=== PATIENT | male | born 1960 | race Caucasian/White ===

== ENCOUNTER 2024-09-04 11:41 | Emergency (ER) | payer BC, SELFPAY ==
--- NOTE | ~2024-09-04 | CT_ITS ---
EXAMINATION: CT abdomen pelvis w con DATE: 09/04/2024 18:29 INDICATION: upper abdominal pain, bloating TECHNIQUE: Computed tomography (CT) of the abdomen and pelvis was performed with 100 mL Omnipaque-350 intravenous contrast. Automated exposure control and iterative reconstruction technique were employe d. The dose-length product was 947.09 mGy-cm. COMPARISON: None. FINDINGS: Lower thorax: 11 mm peripheral right lower lobe pulmonary nodule (coronal image 79/139). Calcified ri ght lower lobe granuloma. Aortic valve calcification. Liver: Normal. Biliary/Gallbladder: Cholelithiasis. No inflammatory change or pericholecystic fluid. No bile duct di lation. Pancreas: No mass or duct dilation. Spleen: Normal. Adrenals:No mass. Kidneys: 3.7 cm exophytic left upper pole lesion, 28 Hounsfield units, minimal focal wall calcificati on. Multiple additional simple left renal cysts. Multiple bilateral subcentimeter hypodensities that are too small to characterize but statistically most likely represent cysts. No hydronephrosis. GI tract: Mild distal esophageal and gastric wall edema. No small or large bowel dilation. Normal fermin endix. Mesentery/Peritoneum: No ascites, mass, or free air. Retroperitoneum: No mass. Atherosclerotic calcifications of intra-abdominal arterial vessels. Pelvis: Normal urinary bladder. Prostatomegaly. Soft Tissues: Small, fat-containing umbilical and bilateral inguinal hernias. Bones: No acute osseous finding. IMPRESSION: 11 mm right lower lobe pulmonary nodule. Recommend low-dose noncontrast CT of the chest follow-up in 3 months, PET/CT, or biopsy. Mild esophagitis/gastritis. Cholelithiasis, without CT evidence of cholecystitis or choledocholithiasis. Indeterminate 3.7 cm left upper pole lesion. Recommend nonemergent but timely CT or MRI without and w ith contrast for further characterization. Reviewed, dictated and finalized at location K. IMPRESSION: 11 mm right lower lobe pulmonary nodule. Recommend low-dose noncontrast CT of t he chest follow-up in 3 months, PET/CT, or biopsy. Mild esophagitis/gastritis. Cholelithiasis, without CT evidence of cholecystitis or choledocholithiasis. Indeterminate 3.7 cm left upper pole lesion. Recommend nonemergent but timely C T or MRI without and with contrast for further characterization.
--- NOTE | ~2024-09-04 | XR_ITS ---
Clinical Indication: Left lung pain PA and lateral views of the chest: Comparison: None Findings: There is linear scarring left lung base. Suture line noted right apical region. The lungs a re otherwise clear, without evidence of focal consolidation or pleural effusion. Cardiomediastinal s ilhouette is within normal limits. Bones and soft tissues are unremarkable. Impression: No acute abnormality. Linear scarring left lung base. Suture line right lung apex. Reviewed, dictated and finalized at location . Impression: No acute abnormality. Linear scarring left lung base. Suture line right lung ap ex.
[2024-09-04 12:15] VITALS: BP 131/76; PULSE 86; RESP 19; TEMP 36.7; O2SAT 96
[2024-09-04 14:24] VITALS: BP 133/87; PULSE 73; RESP 16; O2SAT 98
--- NOTE | 2024-09-04 14:31 | ECG_ITS ---
Test Date: 2024-09-04 14:48:25 Measurements Intervals [place] Rate: 64 P: 79 WY: 181 QRS: 52 QRSD: 105 T: 53 QT: 400 QTc: 414 Interpretive Statements SINUS RHYTHM Electronically Signed On 09-05-2024 13:58:52 CDT by Kaden Lilly D.O
--- NOTE | 2024-09-04 14:32 | ED_ITS ---
HPI - General Adult General Chief complaint: Unspecified Stated complaint: left flank pain Time Seen by Provider: 09/04/24 14:25 Source: patient Mode of arrival: ambulatory Limitations: no limitations History of Present Illness HPI narrative: This is a 63 year old male that presents to the ER for left upper quadrant abdominal pain. Ongoing over the last couple of days. Reports he has had a lot a gas and bloating. Denies any other associated symptoms. Denies fevers, shortness of breath, vomiting, diarrhea. Related Data Allergies Allergy/AdvReac Type Severity Reaction Status Date / Time No Known Allergies Allergy Verified 09/04/24 12:19 Review of Systems 2 Review of Systems: CONSTITUTIONAL: Denies fever CARDIOVASCULAR: Reports chest pain RESPIRATORY: Denies dyspnea. GASTROINTESTINAL: Reports abdominal pain. Denies nausea, vomiting, or diarrhea. All systems reviewed & are unremarkable except as noted in HPI and below PMFSH Past Medical History Medical History (Updated 09/04/24 @ 19:07 by Betty Erwin PA-C) History of pneumothorax Social History Social History (Updated 09/04/24 @ 14:34 by Betty Erwin PA-C) Substance use: never Exam 2 Narrative: GENERAL: Well-appearing, well-nourished, and in no acute distress. HEAD: Normocephalic, atraumatic. EYES: EOMI. ENT: Nares clear, no rhinorrhea or epistaxis. Mucous membranes moist. Oropharynx without tonsillar hypertrophy exudate or other lesions. CHEST: Clear to auscultation. No respiratory distress. No wheezes rales or rhonchi HEART: Regular rate and rhythm. No murmur heard. Normal peripheral pulses. ABDOMEN: Soft, nondistended, normal active bowel sounds. Mild tenderness to palpation throughout the upper abdomen, without guarding EXTREMITIES: Normal range of motion. No edema. SKIN: Warm, dry, no rash. NEURO: No focal deficits. Alert and oriented x3. PSYCH: Normal mood and affect Course Course Emergency Course: Patient updated on his workup and agrees with plan of care Vital Signs Vital signs: Vital Signs Temperature 98.0 F 09/04/24 12:15 Pulse Rate 86 09/04/24 12:15 Respiratory Rate 19 09/04/24 12:15 Blood Pressure 131/76 09/04/24 12:15 Pulse Oximetry 96 09/04/24 12:15 Oxygen Delivery Autopap 09/04/24 12:15 Temperature 98.0 F 09/04/24 12:15 Pulse Rate 73 09/04/24 19:00 Respiratory Rate 15 09/04/24 19:00 Blood Pressure 139/82 09/04/24 19:00 Pulse Oximetry 95 09/04/24 19:00 Oxygen Delivery Room Air 09/04/24 16:32 Medical Decision Making MDM Narrative Medical decision making narrative: Patient presents to the emergency department for epigastric abdominal pain. He is afebrile and nontoxic. His vitals are stable. Cbc without leukocytosis metabolic panel and lipase without concerning findings. Chest x-ray is without acute findings. EKG without acute changesand his baseline troponin is negative. CT abdomen and pelvis obtained. Shows a pulmonary nodule which patient is aware of. Shows esophagitis/gastritis. Cholelithiasis without evidence of cholecystitis. A renal lesion. Patient updated on his workup and agrees with plan of care. Will be started on pantoprazole. Instructed to follow up with primary provider. He was given warnings to return to the ER Vital Signs Vital Signs: Vital Signs Temperature 98.0 F 09/04/24 12:15 Pulse Rate 86 09/04/24 12:15 Respiratory Rate 19 09/04/24 12:15 Blood Pressure 131/76 09/04/24 12:15 Pulse Oximetry 96 09/04/24 12:15 Oxygen Delivery Autopap 09/04/24 12:15 Temperature 98.0 F 09/04/24 12:15 Pulse Rate 73 09/04/24 19:00 Respiratory Rate 15 09/04/24 19:00 Blood Pressure 139/82 09/04/24 19:00 Pulse Oximetry 95 09/04/24 19:00 Oxygen Delivery Room Air 09/04/24 16:32 Lab Data Lab results reviewed: Yes I reviewed the patient's lab results. 09/04/24 15:00 09/04/24 15:00 Labs: Lab Results 09/04/24 Range/Units 15:00 WBC 7.8 (4.5-10.0) K/mm3 RBC 4.74 (4.6-6.20) M/mm3 Hgb 15.0 (14.0-18.0) g/dL Hct 45.5 (42.0-52.0) % MCV 96.0 (80-100) fl MCH 31.6 (26-34) pg MCHC 33.0 (32-36) g/dl RDW 13.2 (11.5-14.5) % Plt Count 184 (150-375) k/mm3 MPV 9.3 (7.4-10.4) fl Immature Gran % (Auto) 0.4 (0-0.5) % Neut % (Auto) 67.0 (45.5-73.1) % Lymph % (Auto) 21.6 (18.3-44.2) % Victoria % (Auto) 6.4 (2.6-8.5) % Eos % (Auto) 4.0 (0-4.4) % Baso % (Auto) 0.6 (0.2-1.2) % Lymph # (Auto) 1.68 (0.9-3.2) K/mm3 Victoria # (Auto) 0.5 (0.1-0.6) K/mm3 Eos # (Auto) 0.3 (0-0.3) K/mm3 Baso # (Auto) 0.1 (0.0-0.1) K/mm3 Abs Immat Gran (auto) 0.03 (0.00-0.031) K/mm3 Absolute Neuts (auto) 5.2 (1.3-6.7) K/mm3 Absolute Nucleated RBC 0.000 (0.0-0.012) K/mm3 Nucleated RBC % 0.0 (0.0-0.2) % PT 13.9 (11.1-14.7) Seconds INR 1.0 APTT 28.2 (22.3-36.8) Seconds D-Dimer 0.47 (<0.48) ug/mL Sodium 138 (137-145) mmol/L Potassium 3.5 (3.4-5.0) mmol/L Chloride 100 (98-107) mmol/L Carbon Dioxide 28 (22-30) mmol/L Anion Gap 10 (4-12) mmol/L BUN 14 (9-20) mg/dL Creatinine 1.21 (0.7-1.3) mg/dL Estim Creat Clear Calc 67 ml/min Estimated GFR 60 (59 - ) Glucose 96 (65-110) mg/dL Calcium 9.3 (8.4-10.2) mg/dL Total Bilirubin 0.7 (0.2-1.3) mg/dL AST 28 (17-59) U/L ALT 35 (6-50) U/L Alkaline Phosphatase 118 (38-126) U/L Troponin I < 0.012 (0.000-0.034) ng/mL Total Protein 8.0 (6.3-8.2) g/dL Albumin 4.7 (3.5-5.1) g/dL Lipase 139 (23-300) U/L Imaging Data Radiologist's impression: ITS Impressions Chest X-Ray 09/04/24 12:58 Impression: No acute abnormality. Linear scarring left lung base. Suture line right lung apex. Abdomen/Pelvis CT 09/04/24 18:32 IMPRESSION: 11 mm right lower lobe pulmonary nodule. Recommend low-dose noncontrast CT of the chest follow-up in 3 months, PET/CT, or biopsy. Mild esophagitis/gastritis. Cholelithiasis, without CT evidence of cholecystitis or choledocholithiasis. Indeterminate 3.7 cm left upper pole lesion. Recommend nonemergent but timely CT or MRI without and with contrast for further characterization. ECG Data EKG #1: ECG completion date: 09/04/24 EKG Interpretation: normal rate, sinus rhythm, no ST changes and normal QT Critical Care Time Critical Care Time Critical Care Time: No Discharge Plan Discharge Clinical Impression: Renal cyst Gastritis Qualifiers: Gastritis type: unspecified gastritis Chronicity: acute Gastritis bleeding: w ithout bleeding Qualified Code(s): K29.00 - Acute gastritis without bleeding Patient Disposition: Home, Self-Care Condition: Stable Instructions: Gastritis (ED) Additional Instructions: Return to the ER if you experience fever, abdominal pain with nausea and vomiting, you are unable to keep down liquids or solids, or any other symptoms that are concerning to you Remain well hydrated. Take pantoprazole as prescribed. Avoid spicy/acidic foods. Avoid eating just before bedtime. Avoid alcohol. Avoid anti- inflammatories (Aleve, Ibuprofen, Naproxen, etc) Follow up with primary care doctor You have a renal cyst that the radiologist is recommending further imaging for evaluation Patient Language: Hebrew Prescriptions: New pantoprazole 40 mg tablet,delayed release (DR/EC) 40 mg PO HS 28 Days Qty: 28 0RF Follow-up/Referrals: Marcelino Odom MD [Physician] - PHYSICIAN NOT ON STAFF,NONSTAFF [Primary Care Provider] -
--- OUTSIDE RECORDS SUMMARY | 2024-09-04 14:40 | XMS_ITS | Data Portability ---
Author Organization Function [facility] [id number] Address [address] [place], [place] [address] Assessment No assessment recorded. Plan of Treatment Reminders Order Date Submit Date Provider Last Modified By Organization Details Last Modified Time Details Appointments None record ed. Lab None record ed. Referral None record ed. Procedures None record ed. Surgeries None record ed. Imaging None record ed. Medication Orders None record ed. Patient TargetsNo targets recorded. Patient InstructionsNo instructions recorded. Reason for Referral None Reported. Results Created Date Observation Date Name Description Value Unit Range Abnormal Flag Note LastModifiedBy Organization Detail LastModifiedTime Result Notes None recorded. Procedures Surgical History Date Name Laterality Status Provider Name and Address Organization Details Recorded Time 3 OC-DOT PHYSICAL completed SARITHA MOHAMUD [facility] 04/23/2023 13:04:15 3 OC-UDS Send Out Template DOT completed EDGARD GALINDO [facility] 01/20/2023 17:46:38 Imaging Results None recorded. Procedure Notes None recorded. Medical Equipment None Reported. Medications Name Sig Start Date Stop Date Status Note LastModified by Organization Details LastModified Time atorvastatin 40 mg tablet TAKE 1 TABLET BY MOUTH DAILY active Not Available Not Available No t Available lisinopril 20 mg-hydrochlor othiazide 12.5 mg tablet TAKE TWO TABLETS BY MOUTH EVERY DAY active Not Available Not Available No t Available tamsulosin 0.4 mg capsule TAKE 1 CAPSULE BY MOUTH ONCE DAILY active Not Available Not Available No t Available amlodipine 10 mg tablet TAKE 1 TABLET BY MOUTH DAILY active Not Available Not Available No t Available metoprolol succinate ER 25 mg tablet,extend ed release 24 hr TAKE 1 TABLET BY MOUTH DAILY active Not Available Not Available No t Available finasteride 5 mg tablet TAKE 1 TABLET BY MOUTH EVERY DAY active Not Available Not Available No t Available diclofenac 1 % topical gel APPLY SPARINGLY TO RIGHT FOREARM 2-3 TIMES PER DAY active Not Available Not Available No t Available Vitals None Recorded Social History None recorded. Functional Status None recorded. Mental Status None recorded. Family History Nothing Reported. Medical History No medical history recorded. Past Encounters Encounter ID Performer Location Encounter Start Date Encounter Closed Date Diagnosis/Indication Diagnosis SNOMED-CT Code Diagnosis ICD10 Code Diagnosis Note [id number] [place] [address] 06/01/2019 10:40:55 06/01/2019 11:57:13 [id number] [place] [address] 06/01/2020 08:44:30 06/01/2020 09:53:37 [id number] [place] [address] 04/20/2018 13:14:29 04/20/2018 15:22:29 [id number] [place] [address] 06/12/2021 09:02:47 06/12/2021 12:26:30 [id number] [place] [address] 07/31/2021 18:08:13 07/31/2021 19:10:10 [id number] [place] [address] 07/21/2018 17:51:40 07/21/2018 18:08:36 [id number] [place] [id number] [place] [address] 01/20/2023 16:13:27 01/20/2023 17:51:18 History and physical examination, occupation 493023149 Z02.1 [id number] [place] [id number] [place] [address] 04/23/2023 11:38:04 04/23/2023 15:46:27 [employer] medical examination 364025066 Z02.4 Physical examination 588 0005 Z02.4 Health Concerns Section Related Observation LastModified by Organization Detai ls LastModified Time None Recorded Concern Status LastModified by Organization Details LastModified Time None Recorded Advance Directives Directive None Recorded Payers Encounter Date Sequence Insurance Name Policy Number Policy Perez Covered Member ID Perez Member ID Guarantor Name 01/20/2023 [employer]-PAY AT TIME OF SERVICE 2022 Gera Krause EMPLOYMENT EMPLOYMENT Gera Krause 04/23/2023 [employer]-PAY AT TIME OF SERVICE 2022 Gera Krause EMPLOYMENT EMPLOYMENT Gera Karuse
--- OUTSIDE RECORDS SUMMARY | 2024-09-04 14:40 | XMS_ITS | Data Portability ---
Author Organization [facility], [facility] Address [address] [place] [address] Assessment No assessment recorded. Plan of Treatment Reminders Order Date Submit Date Provider Last Modified By Organization Details Last Modified Time Details Appointments None recorded. Lab drug test, urine [address] [employer] [facility], [address], [place], [address], 12:41:56 urinalysis , [facility] [employer] [facility], [address], [place], [address], 13:50:19 Referral None recorded. Procedures None recorded. Surgeries None recorded. Imaging None recorded. Medication Orders None recorded. Patient TargetsNo targets recorded. Patient InstructionsNo instructions recorded. Reason for Referral None Reported. Results Created Date Observation Date Name Description Value Unit Range Abnormal Flag Note LastModifiedBy Organization Detail LastModifiedTime 03/04/2003/04/2024 urina lysis , dipst ick Leukocytes - Not Available [facility] [employer] [facility] [address], [place], [address], 03/04/2024 13:36:48 03/04/2003/04/2024 urina lysis , dipst ick Nitrite negati ve Not Available [place] [employer] [facility] [address], [place], [address], 03/04/2024 13:36:48 03/04/20 24 03/04/2024 urina lysis , dipst ick Urobilinogen - Not Available [facility] [address], [place], [address], 03/04/2024 13:36:48 03/04/20 24 03/04/2024 urina lysis , dipst ick Protein - Not Available [facility] [address], [place], [address], 03/04/2024 13:36:48 03/04/20 24 03/04/2024 urina lysis , dipst ick pH 6.0 Not Available [facility] [address], [place], [address], 03/04/2024 13:36:48 03/04/20 24 03/04/2024 urina lysis , dipst ick Blood - Not Available [place] [address], [place], [address], 03/04/2024 13:36:48 03/04/20 24 03/04/2024 urina lysis , dipst ick Specific Sutton 1.025 Not Available [facility] [address], [place], [address], 03/04/2024 13:36:48 03/04/20 24 03/04/2024 urina lysis , dipst ick Ketone - Not Available [facility] [address], [place], [address], 03/04/2024 13:36:48 03/04/20 24 03/04/2024 urina lysis , dipst ick Bilirubin - Not Available [facility] [address], [place], [address], 03/04/2024 13:36:48 03/04/20 24 03/04/2024 urina lysis , dipst ick Glucose - Not Available [facility] [address], [place], [address], 03/04/2024 13:36:48 03/04/20 24 03/04/2024 urina lysis , dipst ick Appearance Clear Not Available Thomas alvarado [employer] [facility] [address], [place], [address], 03/04/2024 13:36:48 03/04/20 24 03/04/2024 urina lysis , dipst ick Color Straw Not Available [place] [employer] [facility] [address], [place], [address], 03/04/2024 13:36:48 Result Notes None recorded. Medical Equipment None Reported. Allergies No known drug allergies Medications Name Sig Start Date Stop Date Status Note LastModified by Organization Details LastModified Time ciprofloxacin 500 mg tablet take 1 tablet by mouth every 12 hours active Not Available Not Available No t Available lisinopril active Not Available Not Av ailable Not Available Vitals Date Recorded Body height Body mass index (BMI) Body weight Heart rate Respiratory rate Body temperature Oxygen saturation Oxygen saturation in Arterial blood by Pulse oximetry Systolic blood pressure Diastolic blood pressure Provider Name and Address Organization Details Last Updated DateTime 177.8 cm 32.3 kg/m2 530670. 28 g 74 /min 16 /min 98.3 [degF] 95 % 95 % 110 mm[Hg] 68 mm[Hg] Betty Camilo [facility] [employer] [facility] [employer] [facility] 13:32:40 Social History Question Answer Notes LastModified by Organizat ion Details LastModified Time Tobacco Smoking Status Never Smoker Betty Camilo [facility] [employer] [facility] [employer] [facility] 03/04/2024 13:33:45 What Is Your Level Of Alcohol Consumption? Occasional Information not available 03/04/2024 What Was The Date Of Your Most Recent Tobacco Screening? 03/04/2024 Information not available 03/04/2024 Do You Use Any Illicit Or Recreational Drugs? No Information not available 03/04/2024 Sex: Unknown Functional Status None recorded. Mental Status None recorded. Family History Nothing Reported. Medical History Condition Response Coronary Artery Disease N Other N Gout N Kidney Stones N Blood Diseases N Hyperthyroidism N Breast Cancer N Blood Transfusion N Hypothyroidism N Depression N COPD N Lung Disease N Defects or Inherited Disease N Developmental or Behavioral Disorders N Breast Problem N Difficulty Swallowing N Anesthesia Complications N Meniere's disease N Anxiety Disorder N Muscle, Joint, or Bone Problems N Obesity N Vision or Eye Problems N Arthritis N Polyps N Infertility N Mental Disorder N Cancer N Varicosities N Stroke N Endometriosis N Bladder or Kidney Problems N High Cholesterol N Liver Disease N Headaches N Fibromyalgia N Kidney Disease N Allergies/Hayfever N Heart Problems N Ear or Hearing Problems N Hospitalizations N Thyroid Problems N GI Problems N ADD/ADHD N Skin Problems N Eating Disorder N Anemia N MRSA exposure N Constipation N Mental Illness N Ovarian Cancer N Diabetes N Bedwetting N Seizures/Epilepsy N Tuberculosis N AIDS/HIV N Congestive Heart Failure (CHF) N Eczema N Diverticulitis N Abuse/Domestic Violence N Asthma N Reflux/GERD N Hepatitis N Heart Disease N Pulmonary Embolism N Chronic Ear Infections N Pre-Eclampsia N Hypertension Y Chicken Pox N Autism Spectrum Disorder (ASD) N Osteoporosis N Thrombophilias N Past Encounters Encounter ID Performer Location Encounter Start Date Encounter Closed Date Diagnosis/Indication Diagnosis SNOMED-CT Code Diagnosis ICD10 Code Diagnosis Note [id number] [facility] [address] [place] [address] 03/04/2024 12:06:03 03/04/2024 13:52:56 Adult health examination 445939260 Z00.00 [id number] [facility] [address] [place] [address] 03/04/2024 12:11:54 03/04/2024 14:41:01 Drug of abuse screen 08634068 Z02.83 Health Concerns Section Related Observation LastModified by Organization Detai ls LastModified Time None Recorded Concern Status LastModified by Organization Details LastModified Time None Recorded Advance Directives Directive None Recorded Payers Encounter Date Sequence Insurance Name Policy Number Policy Perez Covered Member ID Perez Member ID Guarantor Name 03/04/2024 [facility] Gera Krause [id number] Gera Krause 03/04/2024 1 *SELF PAY* Bri Krause
--- OUTSIDE RECORDS SUMMARY | 2024-09-04 14:40 | XMS_ITS | Clinical Summary ---
Author Organization [facility] Address [address] [place] [address] Care Team Providers Care Script Supervisor Name Role Phone Unavailable Primary Care Provider Unavailabl e Social History Tobacco Use Types Packs/Day Years Used Date Smoking Tobacco: Never Assessed Sex and Gender Information Value Date Recorded Sex Assigned at Not on file Legal Sex Male 3:27 PM EDT Gender Identity Not on file Sexual Orientation Not on file Plan of Treatment Not on file
[2024-09-04 15:07] LABS: Basophils Absolute Auto 0.1 K/mm3 (0.0-0.1); Basophils Percent Auto 0.6 % (0.2-1.2); Eosinophils Absolute Auto 0.3 K/mm3 (0-0.3); Hematocrit 45.5 % (42.0-52.0); Immature Granulocyte Absolute 0.03 K/mm3 (0.00-0.031); Immature Granulocyte Percent A 0.4 % (0-0.5); Lymphocytes Absolute Auto 1.68 K/mm3 (0.9-3.2); Lymphocytes Percent Auto 21.6 % (18.3-44.2); Mean Corpuscular Hemoglobin 31.6 pg (26-34); Mean Platelet Volume 9.3 fl (7.4-10.4); Monocytes Absolute Auto 0.5 K/mm3 (0.1-0.6); Monocytes Percent Auto 6.4 % (2.6-8.5); Neutrophils Absolute Auto 5.2 K/mm3 (1.3-6.7); Platelet Count Result 184 k/mm3 (150-375); Red Blood Count 4.74 M/mm3 (4.6-6.20); Red Cell Distribution Width 13.2 % (11.5-14.5); White Blood Count 7.8 K/mm3 (4.5-10.0)
[2024-09-04 15:17] LABS: Alanine Aminotransferase 35 U/L (6-50); Albumin Level 4.7 g/dL (3.5-5.1); Alkaline Phosphatase 118 U/L (38-126); Anion Gap 10 mmol/L (4-12); Aspartate Amino Transferase 28 U/L (17-59); Bilirubin,Total 0.7 mg/dL (0.2-1.3); Blood Urea Nitrogen 14 mg/dL (9-20); Calcium 9.3 mg/dL (8.4-10.2); Carbon Dioxide 28 mmol/L (22-30); Chloride 100 mmol/L (98-107); Estimated CRCL calculation 67 ml/min; Estimated Glomerular Filt Rate 60; Glucose 96 mg/dL (65-110); Lipase 139 U/L (23-300); Potassium 3.5 mmol/L (3.4-5.0); Sodium 138 mmol/L (137-145)
[2024-09-04 15:21] LABS: Prothrombin Time 13.9 Seconds (11.1-14.7)
[2024-09-04 15:22] LABS: Partial Thromboplastin Time 28.2 Seconds (22.3-36.8)
[2024-09-04 15:28] LABS: D Dimer 0.47 ug/mL (<0.48)
[2024-09-04 15:29] LABS: Troponin I < 0.012 ng/mL (0.000-0.034)
[2024-09-04 16:32] VITALS: BP 130/73; PULSE 75; RESP 15; O2SAT 96
[2024-09-04 17:58] VITALS: BP 124/74; PULSE 76; RESP 17; O2SAT 94
[2024-09-04 19:00] VITALS: BP 139/82; PULSE 73; RESP 15; O2SAT 95
--- NOTE | 2024-09-04 19:01 | PC.NURSE ---
Pt prefers to be called Mike.
[2024-09-04] MEDS: PANTOPRAZOLE SODIUM IV 40 MG VIAL IV PUSH (19:05)
[2024-09-04 19:35] VITALS: BP 139/82; PULSE 73; RESP 15; O2SAT 95
== END 2024-09-04 19:37 | disposition home or self-care (01) ==
PROVIDERS: Emergency Provider Physician Assistant
DX: K29.00 Acute gastritis without bleeding (principal); N28.1 Cyst of kidney, acquired; K80.20 Calculus of gallbladder without cholecystitis without obstruction
CPT/HCPCS: 36415; 71046; 74177; 80053; 83690; 84484; 85025; 85380; 85610; 85730; 93005; 96374; 99284; J2470; Q9967